=== PATIENT | male | born 1975 | race American Indian/Alaskan Native ===

== ENCOUNTER 2024-08-10 13:04 | Outpatient (RCR) | payer MEDICAID, SELFPAY | END 2024-08-15 23:59 | disposition home or self-care (01) | LOC: SCTC 13:04 | PROVIDERS: PCP Nurse Practitioner Family; Referring Provider Nurse Practitioner Family; Visit Provider Nurse Practitioner Family | DX: D50.9 Iron deficiency anemia, unspecified (principal); I12.9 Hypertensive chronic kidney disease with stage 1 through stage 4 chronic kidney disease, or unspecified chronic kidney disease; N18.9 Chronic kidney disease, unspecified; D63.1 Anemia in chronic kidney disease; M45.9 Ankylosing spondylitis of unspecified sites in spine | CPT/HCPCS: 99212; G0463 ==

== ENCOUNTER 2024-10-12 14:16 | Outpatient (RCR) | payer MEDICAID, SELFPAY | END 2024-10-16 23:59 | disposition home or self-care (01) | LOC: SCTC 14:16 | PROVIDERS: PCP Nurse Practitioner Family; Referring Provider Nurse Practitioner Family; Visit Provider Nurse Practitioner Family | DX: D50.9 Iron deficiency anemia, unspecified (principal); I12.9 Hypertensive chronic kidney disease with stage 1 through stage 4 chronic kidney disease, or unspecified chronic kidney disease; N18.9 Chronic kidney disease, unspecified; D63.1 Anemia in chronic kidney disease; M45.9 Ankylosing spondylitis of unspecified sites in spine; D63.8 Anemia in other chronic diseases classified elsewhere | CPT/HCPCS: 99212; G0463 ==

== ENCOUNTER 2024-11-11 12:02 | Outpatient (RCR) | payer MEDICAID, SELFPAY | END 2024-11-13 23:59 | disposition home or self-care (01) | LOC: SCTC 12:02 | PROVIDERS: PCP Nurse Practitioner Family; Referring Provider Nurse Practitioner Family; Visit Provider Nurse Practitioner Family | DX: Z09 Encounter for follow-up examination after completed treatment for conditions other than malignant neoplasm (principal); Z86.2 Personal history of diseases of the blood and blood-forming organs and certain disorders involving the immune mechanism | CPT/HCPCS: 99213; G0463 ==

== ENCOUNTER 2025-01-21 11:36 | Outpatient (RCR) | payer MEDICAID, SELFPAY | END 2025-02-13 23:59 | disposition home or self-care (01) | LOC: SCTC 11:36 | PROVIDERS: PCP Nurse Practitioner Family; Referring Provider Nurse Practitioner Family; Visit Provider Nurse Practitioner Family | DX: D50.9 Iron deficiency anemia, unspecified (principal); I12.9 Hypertensive chronic kidney disease with stage 1 through stage 4 chronic kidney disease, or unspecified chronic kidney disease; N18.9 Chronic kidney disease, unspecified; D63.1 Anemia in chronic kidney disease; M45.9 Ankylosing spondylitis of unspecified sites in spine; D63.8 Anemia in other chronic diseases classified elsewhere | CPT/HCPCS: 99212; G0463 ==

== ENCOUNTER 2025-03-08 14:22 | Outpatient (RCR) | payer MEDICAID, SELFPAY | END 2025-03-15 23:59 | disposition home or self-care (01) | LOC: SCTC 14:22 | PROVIDERS: PCP Nurse Practitioner Family; Referring Provider Nurse Practitioner Family; Visit Provider Nurse Practitioner Family | DX: D50.9 Iron deficiency anemia, unspecified (principal); E11.22 Type 2 diabetes mellitus with diabetic chronic kidney disease; I12.9 Hypertensive chronic kidney disease with stage 1 through stage 4 chronic kidney disease, or unspecified chronic kidney disease; N18.31 Chronic kidney disease, stage 3a; D63.1 Anemia in chronic kidney disease; M45.9 Ankylosing spondylitis of unspecified sites in spine | CPT/HCPCS: 99212; G0463 ==

== ENCOUNTER 2025-04-13 13:48 | Outpatient (RCR) | payer MEDICAID, SELFPAY | END 2025-04-15 23:59 | disposition home or self-care (01) | LOC: SCTC 13:48 | PROVIDERS: PCP Nurse Practitioner Family; Referring Provider Nurse Practitioner Family; Visit Provider Nurse Practitioner Family | DX: D50.9 Iron deficiency anemia, unspecified (principal); N18.9 Chronic kidney disease, unspecified; D63.1 Anemia in chronic kidney disease; M45.9 Ankylosing spondylitis of unspecified sites in spine; E83.51 Hypocalcemia | CPT/HCPCS: 96372; 99212; Q5106; G0463 ==